=== PATIENT | female | born 1980 | race Caucasian/White ===

== ENCOUNTER 2017-08-14 05:37 | Emergency (ER) | payer OTHER ==
[~2017-08-14] VITALS: Ht 167.6 cm; Wt 76.5 kg
[~2017-08-14 05:37] MED LIST: CEPH-443 PO
[2017-08-14 05:39] VITALS: Ht 167.6 cm; Wt 76.5 kg
[2017-08-14] MEDS ORDERED: SULF1TAB31 PO (06:27)
[2017-08-14] MEDS ORDERED: CEPH-443 PO (06:27)
--- NOTE | 2017-08-14 06:27 | ERD ---
ER Documentation Chief Complaint Date/Time DATE: 08/14/17 TIME: 06:25 Chief Complaint abscess at back area HPI 37-year-old female presents emergency department for abscess on the lower back that started 2 days ago. She states that occurred from a splinter, and she has been seen at a different emergency department was given Bactrim she states that the area became worse. She states that she only took 3 or 4 doses. The area is becoming slightly more red, swollen. She has not had any fevers or chills. ROS All systems reviewed and are negative except as per history of present illness. Medications Home Meds Active Scripts Cephalexin* (Keflex*) 500 Mg Capsule, 500 MG PO QID for 7 Days, CAP Prov:DELVIN ALBERT Prince 06/10/16 Allergies Allergies: Coded Allergies: Penicillins (Verified Allergy, Unknown, 08/14/17) PMhx/Soc Medical and Surgical Hx: pt denies Medical Hx, pt denies Surgical Hx Hx Alcohol Use: No Hx Substance Use: No Hx Tobacco Use: No Physical Exam Vitals Vital Signs Date Time Temp Pulse Resp B/P Pulse Ox O2 Delivery O2 Flow Rate FiO2 08/14/17 05:39 98.2 101 20 129/85 98 Physical Exam General: Well-developed, well-nourished. The patient appears in no acute distress. HEENT: Head is normocephalic, atraumatic. No scleral icterus. Neck: Supple. Nontender. Lungs: Clear to auscultation. Normal air movement. Heart: Regular rate and rhythm. S1 and S2 are normal. No murmurs, gallops, or rubs. Abdomen: Nondistended. Extremities: No clubbing or cyanosis. Moving extremities x 4. No weakness. Neurologic: Alert and oriented 3. No focal deficits. Normal speech and gait. Skin: Lower back has a 3 cm area of induration fluctuance, with surrounding erythema, it is tender to palpation, warm. There is no lymphatic streaking. Results 24 hrs Current Medications Medications (Trade) Dose Ordered Sig/Jing Route PRN Reason Start Time Stop Time Status Last Admin Dose Admin Lidocaine (Xylocaine 1% (Mdv) 20 ml) 20 ml ONCE ONCE SC 08/14/17 06:30 08/14/17 06:31 Procedures/MDM Abscess Incision and Drainage with irrigation by me: She was verbally consented. Location: Lower back Anesthesia: Local 1% Lidocaine Technique: Irrigated. Disrupted loculations w/ instrumentation Packing: None Complications: Neurovascularly intact post procedure 48 hour wound check. Scar minimization instructions given. Patient's skin symptoms have stabilized while they have been evaluated in the department and are appropriate for outpatient care and work up. Exam and w/u not consistent w/ sepsis, deep space infection, or foreign body. Departure Diagnosis: Primary Impression: Abscess Additional Impression: Encounter for incision and drainage procedure Condition: BLAINE Coronado PA-C Aug 14, 2017 06:27
[2017-08-14] MEDS ORDERED: LIDOCAINE 1% (MDV) 20 ML INJ SC ONE (06:30)
== END 2017-08-14 06:50 | disposition home or self-care (01) ==
LOC: FTE 05:37
DX: L02.212 Cutaneous abscess of back [any part, except buttock and flank] (principal)
CPT/HCPCS: 10060; Z7502; Z7610

== ENCOUNTER 2017-10-11 15:22 | Emergency (ER) | payer OTHER ==
[~2017-10-11] VITALS: Ht 172.7 cm; Wt 75.7 kg
[~2017-10-11 15:22] MED LIST changes: +SULF1TAB31 PO
[2017-10-11 15:28] VITALS: Ht 172.7 cm; Wt 75.7 kg
[2017-10-11] MEDS ORDERED: KETOROLAC 15 MG INJ IV STA (17:53)
[2017-10-11] MEDS ORDERED: ONDANSETRON 4 MG INJ IV STA (17:53)
--- NOTE | 2017-10-11 17:53 | ERD ---
ER Documentation Chief Complaint Chief Complaint abdominal pain x 5 days and blood in diarrhea HPI This 37-year-old female reports ABD pain x 2 weeks , pt reports watery diarrhea and blood in toilet x 5 day. pt reports epigastric pain described as burning. decreased appetite denies nausea, vomiting, fever, or chills. ROS All systems reviewed and are negative except as per history of present illness. Medications Home Meds Active Scripts Acetaminophen* (Tylophen*) 500 Mg Capsule, 2 CAP PO Q8H Y for PAIN AND OR ELEVATED TEMP, #20 CAP Prov:JEREMY,EVAN 10/11/17 Ranitidine Hcl* (Zantac*) 150 Mg Tablet, 150 MG PO BID Y for EPIGASTRIC PAIN, # 30 TAB Prov:JEREMY,EVAN 10/11/17 Metronidazole* (Flagyl*) 500 Mg Tablet, 500 MG PO TID for 7 Days, TAB Prov:JEREMY,EVAN 10/11/17 Ciprofloxacin Hcl* (Ciprofloxacin Hcl*) 500 Mg Tablet, 500 MG PO BID for 7 Days , TAB Prov:JEREMY,EVAN 10/11/17 Sulfamethoxazole/Trimethoprim* (Bactrim Ds* Tablet) 1 Each Tablet, 1 TAB PO BID , #14 TAB Prov:BLAINE GARCIA PA-C 08/14/17 Cephalexin* (Keflex*) 500 Mg Capsule, 500 MG PO QID for 7 Days, CAP Prov:BLAINE GARCIA PA-C 08/14/17 Cephalexin* (Keflex*) 500 Mg Capsule, 500 MG PO QID for 7 Days, CAP Prov:DELVIN ALBERT 06/10/16 Allergies Allergies: Coded Allergies: Penicillins (Verified Allergy, Unknown, 10/11/17) PMhx/Soc Hx Alcohol Use: No Hx Substance Use: No Hx Tobacco Use: No Physical Exam Vitals Vitals stable, triage notes reviewed Physical Exam Const: Well-nourished, well-appearing, well-hydrated 37-year-old female no acute distress ENT: Normal External Ears, Nose and Mouth. Resp: Clear to auscultation bilaterally Cardio: Regular rate and rhythm, no murmurs Abd: Soft, epigastric and pelvic tenderness Rectal: Normal tone, No mass, Positive control Stool: Brown Guaiac: Negative Back: No midline or flank tenderness Neur: Awake and alert Psych: Normal Mood and Affect Results 24 hrs Laboratory Tests Test 10/11/17 18:21 10/11/17 18:22 10/11/17 20:00 Urine Color JEFFREY Urine Clarity CLEAR Urine pH 5.0 Urine Specific Negley 1.030 Urine Ketones NEGATIVEmg/dL Urine Nitrite NEGATIVEmg/dL Urine Bilirubin NEGATIVEmg/dL Urine Urobilinogen 1+mg/dL Urine Leukocyte Esterase TRACELeu/ul Urine Microscopic RBC 10/HPF Urine Microscopic WBC 3/HPF Urine Calcium Oxalate Crystals FEW/HPF Urine Mucus MANY/HPF Urine Hemoglobin 1+mg/dL Urine Glucose NEGATIVEmg/dL Urine Total Protein 1+mg/dl White Blood Count 10.010^3/ul Red Blood Count 4.2810^6/ul Hemoglobin 13.3g/dl Hematocrit 39.0% Mean Corpuscular Volume 91.1fl Mean Corpuscular Hemoglobin 31.1pg Mean Corpuscular Hemoglobin Concent 34.1g/dl Red Cell Distribution Width 13.8% Platelet Count 25747^3/UL Mean Platelet Volume 9.5fl Neutrophils % 63.9% Lymphocytes % 27.1% Monocytes % 5.8% Eosinophils % 2.7% Basophils % 0.3% Nucleated Red Blood Cells % 0.0/100WBC Neutrophils # 6.410^3/ul Lymphocytes # 2.710^3/ul Monocytes # 0.610^3/ul Eosinophils # 0.310^3/ul Basophils # 0.010^3/ul Nucleated Red Blood Cells # 0.010^3/ul Sodium Level 141mmol/L Potassium Level 3.9mmol/L Chloride Level 108mmol/L Carbon Dioxide Level 24mmol/L Anion Gap 13 Blood Urea Nitrogen 15mg/dl Creatinine 0.69mg/dl Glucose Level 90mg/dl Calcium Level 9.5mg/dl Total Bilirubin 0.1mg/dl Direct Bilirubin 0.00mg/dl Indirect Bilirubin 0.1mg/dl Aspartate Amino Transf (AST/SGOT) 21IU/L Alanine Aminotransferase (ALT/SGPT) 39IU/L Alkaline Phosphatase 53IU/L Total Protein 7.2g/dl Albumin 4.0g/dl Globulin 3.20g/dl Albumin/Globulin Ratio 1.25 Lipase 55U/L Stool Occult Blood NEGATIVE Current Medications Medications (Trade) Dose Ordered Sig/Jing Route PRN Reason Start Time Stop Time Status Last Admin Dose Admin Sodium Chloride (NS) 1,000 ml @ 1,000 mls/hr Q1H ONCE IV 10/11/17 18:00 10/11/17 18:59 DC 10/11/17 18:24 Pantoprazole (Protonix Iv) 40 mg ONCE ONCE IV 10/11/17 18:00 10/11/17 18:01 DC 10/11/17 18:24 Ketorolac Tromethamine (Toradol) 15 mg ONCE STAT IV 10/11/17 17:53 10/11/17 18:00 DC 10/11/17 18:24 Ondansetron HCl (Zofran Inj) 4 mg ONCE STAT IV 10/11/17 17:53 10/11/17 18:00 DC 10/11/17 18:24 Miscellaneous Medication (Gi Cocktail (2)) 40 ml ONCE ONCE PO 10/11/17 19:30 10/11/17 19:31 DC 10/11/17 19:13 Ciprofloxacin (Cipro) 500 mg ONCE ONCE PO 10/11/17 20:30 10/11/17 20:30 DC 10/11/17 20:12 Metronidazole (Flagyl) 500 mg ONCE ONCE PO 10/11/17 20:30 10/11/17 20:30 DC 10/11/17 20:23 Procedures/MDM PROCEDURE: CT Abdomen and Pelvis without contrast. CLINICAL INDICATION: Blood in stool. Pain. TECHNIQUE: CT scan of the abdomen and pelvis was performed on a multidetector slice CT scanner. No intravenous contrast material was utilized. Sagittal and coronal reformatted images were obtained from the axial source images. Images were reviewed on a high-resolution PACS workstation. Exam CTDlvol = 8.5 mGy and DLP = 480 Gy-cm. One of the following 3 dose reduction techniques were used: Automated exposure control; adjustment of the mA and/or kV according to patient size; or use of iterative reconstruction technique. DICOM images are available. COMPARISON: None. FINDINGS: There is no obstruction or ileus. There is diffuse left and sigmoid colon wall thickening with mild surrounding infiltration consistent with a nonspecific colitis. The appendix is well visualized and normal in size. There is no evidence for diverticulitis. There is no free fluid. The liver is overall normal in size. No intrahepatic lesions are identified. The gallbladder is contracted with nonspecific wall thickening.. There is no definite biliary ductal dilation. Pancreas is normal in appearance. The spleen is unremarkable. There are no adrenal masses. The aorta is normal caliber. Kidneys are normal in appearance without hydronephrosis, mass or calculus. There is no perinephric collection. Ureters are of normal caliber and without evidence for an obstructing calculus The urinary bladder is normal in appearance. The uterus and ovaries are grossly unremarkable. Limited evaluation of the lung bases is unremarkable. The bones are unremarkable. IMPRESSION: 1. Diffuse left and sigmoid colon wall thickening with mild surrounding infiltration compatible with a nonspecific colitis. 2. No evidence for appendicitis. 3. No evidence for diverticulitis. 4. Partially contracted gallbladder with nonspecific wall thickening. 5. Otherwise negative. RPTAT: HMVK .Jona Merritt MD, Date Time Electronically viewed and signed by .Jona Merritt MD, on 10/11/2017 19:15 This 37-year-old female presents to emergency department with rectal bleeding, epigastric pain described as burning. Abdominal cramps. Watery to soft bowel movements. Patient reports she has been symptomatic for the last 3 days, states that she has had a spicy hot pepper last week is concerned that the pepper caused current symptoms, remote history of colitis related to food dysentery from [facility] several years ago, patient states that she was hospitalized at [facility], but has been asymptomatic ever since hospital release. Patient denies any history of hemorrhoids, fatigue, or dizziness. Patient denies chest pain, shortness of breath, reports symptoms are exacerbated with food that she has not had solid food today. He is able to tolerate liquids. Emergency room course includes history and physical exam,, routine diagnostic labs, and CAT scan without IV contrast. Unremarkable laboratory findings, no evidence of hemorrhage or infection, electrolyte dysfunction, hepatitis, or urinary tract infection, CAT scan documents1. Diffuse left and sigmoid colon wall thickening with mild surrounding infiltration compatible with a nonspecific colitis.2. No evidence for appendicitis.3. No evidence for diverticulitis.4. Partially contracted gallbladder with nonspecific wall thickening.5. Otherwise negative. This case discussed with supervising physician Dr. Camarillo, patient reports that she has used street drugs, methamphetamine, last used several weeks ago in the form of a rectal enema. Departure Diagnosis: Primary Impression: Colitis Condition: Good Patient Instructions: Gastritis Vs. Ulcer, Treating Gastritis Additional Instructions: Thank you for for coming to [facility] for your care today. Please ask your nurse or provider if you have questions about your care today and do not leave until all your questions have been answered. Please use any medications given as directed and follow-up with your doctor (or the doctor you were referred to) in the next 2-3 days. If you do not have a primary care doctor you may follow up at the [facility] (listed below). You may also use motrin and tylenol as needed for fever and/or pain unless instructed otherwise by your provider or nurse. Indications for more urgent follow-up have been discussed, but you may return to the Emergency Department at ANY time for any worrisome or worsening symptoms. If you have abdominal pain, please know that no test or exam you received is perfect and you should follow up within 8 hours for continued pain. If you had any imaging studies today, such as an X-Ray or CT Scan, these studies will be reviewed later by a radiologist. You will be called if there are important findings that were not identified today, so make sure the contact information you provided at registration is correct. If you received any narcotic pain control medicine today, such as Vicodin, Morphine or Dilaudid, your coordination and judgment may be affected for a number of hours. Please do not drive or operate heavy machinery, and you may want someone to assist you at home. If you were given a prescription for narcotic medication, be aware that it is very addictive- use sparingly and only if necessary. EVAN LUNA Oct 11, 2017 17:53 EVAN LUNA Oct 11, 2017 17:53 If you had any imaging studies today, such as an X-Ray or CT Scan, these studies will be reviewed later by a radiologist. You will be called if there are important findings that were not identified today, so make sure the contact information you provided at registration is correct. If you received any narcotic pain control medicine today, such as Vicodin, Morphine or Dilaudid, your coordination and judgment may be affected for a number of hours. Please do not drive or operate heavy machinery, and you may want someone to assist you at home. If you were given a prescription for narcotic medication, be aware that it is very addictive- use sparingly and only if necessary. EVAN LUNA Oct 11, 2017 17:53
[2017-10-11] MEDS ORDERED: PANTOPRAZOLE 40 MG INJ IV ONE (18:00)
[2017-10-11] MEDS ORDERED: SOD CHLORIDE 0.9% 1,000 ML IV ONE (18:00)
[2017-10-11 18:36] LABS: BASOPHILS % 0.3 % (0.0-2.0); EOSINOPHILS # 0.3 10^3/ul (0.0-0.5); EOSINOPHILS % 2.7 % (0.0-7.0); HEMOGLOBIN 13.3 g/dl (12.0-16.0); LYMPHOCYTES # 2.7 10^3/ul (0.8-2.9); LYMPHOCYTES % 27.1 % (15.0-51.0); MEAN CORPUSCULAR HEMOGLOBIN 31.1 pg (29.0-33.0); MEAN CORPUSCULAR HGB CONC 34.1 g/dl (32.0-37.0); MEAN CORPUSCULAR VOLUME 91.1 fl (82.0-101.0); MEAN PLATELET VOLUME 9.5 fl (7.4-10.4); MONOCYTE # 0.6 10^3/ul (0.3-0.9); MONOCYTES % 5.8 % (0.0-11.0); NEUTROPHIL # 6.4 10^3/ul (1.6-7.5); NEUTROPHILS % 63.9 % (39.0-77.0); PLATELET COUNT 320 10^3/UL (140-415); RED BLOOD COUNT 4.28 10^6/ul (4.20-5.40); RED CELL DISTRIBUTION WIDTH 13.8 % (11.5-14.5)
[2017-10-11 18:53] LABS: ALBUMIN/GLOBULIN RATIO 1.25; BILIRUBIN,INDIRECT 0.1 mg/dl (0-1.1); BILIRUBIN,TOTAL 0.1 mg/dl (0.2-1.3); CALCIUM 9.5 mg/dl (8.4-10.2); CREATININE 0.69 mg/dl (0.44-1.00); POTASSIUM 3.9 mmol/L (3.5-5.1); TOTAL PROTEIN 7.2 g/dl (6.1-8.1)
[2017-10-11 18:55] LABS: ADD UMIC YES; UR ASCORBIC ACID NEGATIVE (NEGATIVE); UR BILIRUBIN (Dip) NEGATIVE (NEGATIVE); UR BLOOD (Dip) 1+ mg/dL (NEGATIVE); UR CLARITY CLEAR (CLEAR); UR COLOR AMBER (YELLOW); UR GLUCOSE (Dip) NEGATIVE (NEGATIVE); UR KETONES (Dip) NEGATIVE (NEGATIVE); UR LEUKOCYTE ESTERASE (Dip) TRACE Leu/ul (NEGATIVE); UR MUCUS MANY /HPF (NONE SEEN); UR NITRITE (Dip) NEGATIVE (NEGATIVE); UR RBC 10 /HPF (0-5); UR TOTAL PROTEIN (Dip) 1+ mg/dl (NEGATIVE); UR UROBILINOGEN (Dip) 1+ mg/dL (NEGATIVE)
--- NOTE | 2017-10-11 19:15 | RADRPT ---
PROCEDURE: CT Abdomen and Pelvis without contrast. CLINICAL INDICATION: Blood in stool. Pain. TECHNIQUE: CT scan of the abdomen and pelvis was performed on a multidetector slice CT scanner. No intravenous contrast material was utilized. Sagittal and coronal reformatted images were obtained fr om the axial source images. Images were reviewed on a high-resolution PACS workstation. Exam CTDlvol = 8.5 mGy and DLP = 480 Gy-cm. One of the following 3 dose reduction techniques were used: Automate d exposure control; adjustment of the mA and/or kV according to patient size; or use of iterative re construction technique. DICOM images are available. COMPARISON: None. FINDINGS: There is no obstruction or ileus. There is diffuse left and sigmoid colon wall thickening with mild surrounding infiltration consistent with a nonspecific colitis. The appendix is well visualized and normal in size. There is no evidence for diverticulitis. There is no free fluid. The liver is overall normal in size. No intrahepatic lesions are identified. The gallbladder is cont racted with nonspecific wall thickening.. There is no definite biliary ductal dilation. Pancreas is normal in appearance. The spleen is unremarkable. There are no adrenal masses. The aorta is normal c aliber. Kidneys are normal in appearance without hydronephrosis, mass or calculus. There is no perinephric c ollection. Ureters are of normal caliber and without evidence for an obstructing calculus The urinar y bladder is normal in appearance. The uterus and ovaries are grossly unremarkable. Limited evaluation of the lung bases is unremarkable. The bones are unremarkable. IMPRESSION: 1. Diffuse left and sigmoid colon wall thickening with mild surrounding infiltration compatible wit h a nonspecific colitis. 2. No evidence for appendicitis. 3. No evidence for diverticulitis. 4. Partially contracted gallbladder with nonspecific wall thickening. 5. Otherwise negative. RPTAT: HMVK .Jona Merritt MD, Date Time Electronically viewed and signed by .Jona Merritt MD, MD on 10/11/2017 19:15 .K/
[2017-10-11] MEDS ORDERED: LIDOCAINE/MYLANTA 40 ML BTL PO ONE (19:30)
[2017-10-11] MEDS ORDERED: CIPR500T4 PO (20:11)
[2017-10-11] MEDS ORDERED: METR500T PO (20:12)
[2017-10-11] MEDS ORDERED: RANI150T9 PO (20:12)
[2017-10-11] MEDS ORDERED: ACET500C5 PO (20:13)
[2017-10-11 20:21] VITALS: BP 131/73; PULSE 80; RESP 18; TEMP 98
[2017-10-11] MEDS ORDERED: CIPROFLOXACIN 500 MG TAB PO ONE (20:30)
[2017-10-11] MEDS ORDERED: metroNIDAZOLE 500 MG TAB PO ONE (20:30)
== END 2017-10-11 20:24 | disposition home or self-care (01) ==
LOC: FTE 15:22
DX: K52.9 Noninfective gastroenteritis and colitis, unspecified (principal)
CPT/HCPCS: 36415; 74176; 80053; 81001; 82270; 83690; 85025; 96374; 96375; C9113; J1885; J2405; J7030; Z7502; Z7610

== ENCOUNTER 2017-12-22 13:09 | Emergency (ER) | END 2017-12-22 16:00 | disposition left against medical advice (07) ==

== ENCOUNTER 2018-05-20 00:27 | Emergency (ER) | END 2018-05-20 00:54 | disposition left against medical advice (07) ==

== ENCOUNTER 2018-09-03 18:24 | Emergency (ER) | END 2018-09-03 20:46 | disposition left against medical advice (07) ==

== ENCOUNTER 2018-10-26 23:59 | Emergency (ER) | END 2018-10-27 02:30 | disposition left against medical advice (07) ==

== ENCOUNTER 2019-06-05 06:14 | Emergency (ER) | payer OTHER ==
[~2019-06-05] VITALS: Ht 172.7 cm; Wt 81.7 kg
[~2019-06-05 06:14] MED LIST changes: +ACET325T33 PO; +ACET500C5 PO; +CIPR500T4 PO; +METR500T PO; +ONDA4TAB14 PO; +RANI150T35 PO
[2019-06-05 06:17] VITALS: BP 127/83; PULSE 89; RESP 20; Ht 172.7 cm; Wt 81.7 kg
[2019-06-05] MEDS ORDERED: ACETAMINOPHEN 500 MG TAB PO STA (06:29)
[2019-06-05] MEDS ORDERED: ONDANSETRON (ODT) 4 MG TAB ODT STA (06:29)
--- NOTE | 2019-06-05 08:49 | ERD ---
ER Documentation Chief Complaint Chief Complaint diarrhea x 5 days; nausea; denies vomitting HPI 38-year-old female presenting with diarrhea x5 days. Patient denies any abdominal pain and denies fevers. She has had no vomiting or nausea. Has not taken medication for his symptoms and denies any abdominal pain with bloody stools. Denies medical problems. Allergic to penicillin. Surgical history tonsillectomy. Social history uses meth marijuana and smokes cigarettes. Last use drugs 2 days ago. ROS All systems reviewed and are negative except as per history of present illness. Medications Home Meds Active Scripts Acetaminophen* (Tylenol*) 325 Mg Tablet, 2 TAB PO Q6 PRN for PAIN AND OR ELEVATED TEMP, #20 TAB Prov:YESENIA ALATORRE PA-C 06/05/19 Ondansetron (Ondansetron Odt) 4 Mg Tab.rapdis, 4 MG PO Q6H PRN for NAUSEA AND/OR VOMITING, #10 TAB Prov:YESENIA ALATORRE PA-C 06/05/19 Acetaminophen* (Tylophen*) 500 Mg Capsule, 2 CAP PO Q8H PRN for PAIN AND OR ELEVATED TEMP, #20 CAP Prov:JEREMY,EVAN 10/11/17 Ranitidine Hcl* (Zantac*) 150 Mg Tablet, 150 MG PO BID PRN for EPIGASTRIC PAIN, #30 TAB Prov:JEREMY,EVAN 10/11/17 Metronidazole* (Flagyl*) 500 Mg Tablet, 500 MG PO TID for 7 Days, TAB Prov:JEREMY,EVAN 10/11/17 Ciprofloxacin Hcl* (Ciprofloxacin Hcl*) 500 Mg Tablet, 500 MG PO BID for 7 Days, TAB Prov:JEREMY,EVAN 10/11/17 Sulfamethoxazole/Trimethoprim* (Bactrim Ds* Tablet) 1 Each Tablet, 1 TAB PO BID, #14 TAB Prov:BLAINE GARCIA PA-C 08/14/17 Cephalexin* (Keflex*) 500 Mg Capsule, 500 MG PO QID for 7 Days, CAP Prov:BLAINE GARCIA PA-C 08/14/17 Cephalexin* (Keflex*) 500 Mg Capsule, 500 MG PO QID for 7 Days, CAP Prov:DELVIN ALBERT 06/10/16 Allergies Allergies: Coded Allergies: Penicillins (Verified Allergy, Unknown, 06/05/19) PMhx/Soc History of Surgery: Yes (TONSILLECTOMY, NOSE SX) Anesthesia Reaction: No Hx Neurological Disorder: No Hx Respiratory Disorders: No Hx Cardiac Disorders: No Hx Psychiatric Problems: No Hx Miscellaneous Medical Probl: No Hx Alcohol Use: Yes Hx Substance Use: No (MARIJUANA) Hx Tobacco Use: Yes (1/2 PACK/DAY) Smoking Status: Current every day smoker FmHx Family History: No diabetes, No coronary disease, No other Physical Exam Vitals Vital Signs Date Temp Pulse Resp B/P (MAP) Pulse Ox O2 O2 Flow FiO2 Time Delivery Rate 06/05/19 36.5 06:44 06/05/19 97.6 89 20 127/83 99 06:17 (98) Physical Exam GENERAL: The patient is well-appearing, well-nourished, in no acute distress HEENT: Atraumatic. Conjunctivae are pink. Pupils equal, round, and reactive to light. There is no scleral icterus. Tympanic membranes clear bilaterally. Oropharynx clear. CHEST: Clear to auscultation bilaterally. There are no rales, wheezes or rhonchi. HEART: Regular rate and rhythm. No murmurs, clicks, rubs or gallops. ABDOMEN:Soft, nontender and nondistended. Good bowel sounds. No rebound or guarding. No gross peritonitis. No gross organomegaly or masses. Results 24 hrs Current Medications Medications Dose Sig/Jing Start Time Status Last (Trade) Ordered Route PRN Stop Time Admin Dose Reason Admin Ondansetron 4 mg ONCE STAT 06/05/19 DC 06/05/19 HCl (Zofran ODT 06:29 06/05/19 06:44 Odt) 06:31 1,000 mg ONCE STAT 06/05/19 DC 06/05/19 Acetaminophen PO 06:29 06/05/19 06:44 (Tylenol 06:31 Tab) Procedures/MDM ER course: Tylenol and Zofran given in ED. MDM: 38-year-old female presenting with diarrhea. Patient abdominal exam and vitals are within normal limits. I have low suspicion for acute abdominal emergency and I do not feel patient requires blood work or imaging. She likely has viral syndrome causing her diarrhea. Patient is discharged with strict ER precautions and told to follow-up with primary care within 1 to 2 days for close evaluation. Patient is told symptoms change or worsen to return immediately to the ER. All questions answered at discharge Departure Diagnosis: Primary Impression: Diarrhea Condition: Stable Patient Instructions: Self-Care for Vomiting and Diarrhea Referrals: [facility] YOU HAVE RECEIVED A MEDICAL SCREENING EXAM AND THE RESULTS INDICATE THAT YOU DO NOT HAVE A CONDITION THAT REQUIRES URGENT TREATMENT IN THE EMERGENCY DEPARTMENT. FURTHER EVALUATION AND TREATMENT OF YOUR CONDITION CAN WAIT UNTIL YOU ARE SEEN IN YOUR DOCTORS OFFICE WITHIN THE NEXT 1-2 DAYS. IT IS YOUR RESPONSIBILITY TO MAKE AN APPOINTMENT FOR FOLOW-UP CARE. IF YOU HAVE A PRIMARY DOCTOR --you should call your primary doctor and schedule an appointment IF YOU DO NOT HAVE A PRIMARY DOCTOR YOU CAN CALL OUR PHYSICIAN REFERRAL HOTLINE AT IF YOU CAN NOT AFFORD TO SEE A PHYSICIAN YOU CAN CHOSE FROM THE FOLLOWING [facility] [address] [facility] [address] [facility] [facility] [address] [facility] [address] [facility] [address] [facility] [facility]. [address] Additional Instructions: FOLLOW UP WITH YOUR PRIMARY CARE PHYSICIAN TOMORROW.Return to this facility if you are not improving as expected. YESENIA ALATORRE PA-C Jun 05, 2019 08:49
== END 2019-06-05 07:13 | disposition home or self-care (01) ==
LOC: FTE 06:14
DX: R19.7 Diarrhea, unspecified (principal); F17.210 Nicotine dependence, cigarettes, uncomplicated
CPT/HCPCS: Z7502; Z7610; 99283